=== PATIENT | male | born 1945 | race Caucasian/White ===

== ENCOUNTER 2017-10-03 10:25 | Inpatient (IN) | payer MEDICARE ==
--- NOTE | 2017-09-20 09:51 | HP ---
HISTORY AND PHYSICAL: DATE OF OFFICE VISIT: 09/20/17 DATE OF SURGERY: 10/03/17. SURGEON: Tresa Griffith MD * (DICTATED BY ADAN WASHBURN) PROCEDURE: Right total knee arthroplasty. CHIEF COMPLAINT: Right knee pain. HISTORY OF PRESENT ILLNESS: Mr. Solis is a 71-year-old gentleman complaints of right knee pain secondary to endstage osteoarthritis. He has failed conservative management and has elected to proceed with a right total knee arthroplasty, which is scheduled for 10/03/[address] Griffith. PAST MEDICAL HISTORY: Coronary artery disease, hypertension, high cholesterol , Hernandez's palsy, and first-degree AV block. PAST SURGICAL HISTORY: Cholecystectomy, lumbar decompression, appendectomy, ORIF of the right ankle, cyst excision, umbilical hernia repair, cataract removal, and CABG. CURRENT MEDICATIONS: 1. Lisinopril 5 mg daily. 2. Aspirin 81 mg daily. 3. Atorvastatin calcium 20 mg q.h.s. 4. Metoprolol 25 mg every day. ALLERGIES: None. FAMILY HISTORY: Coronary artery disease and cancer. SOCIAL HISTORY: This 71-year-old gentleman lives with his spouse. He does not smoke or use drugs. He uses occasional alcohol. REVIEW OF SYSTEMS: A complete 14-point review of systems was reviewed with the patient, all negative and noncontributory. He denies history of DVT, PE, hepatitis C, HIV, or MRSA. PHYSICAL EXAMINATION GENERAL: He is well-developed, well-nourished, in no acute distress. VITAL SIGNS: He stands 5 feet 8 inches, weighs 195 pounds, blood pressure is 134/70, heart rate is 60. HEENT: Normocephalic, atraumatic. NECK: Supple. No palpable lymph nodes. LUNGS: Clear to auscultation bilaterally. CARDIO: Regular rate and rhythm. Strong S1, S2. ABDOMEN: Soft, nontender, and nondistended. NEUROLOGIC: He is alert and oriented x3. Cranial nerves II through XII are intact. Musculoskeletal: Right lower extremity, skin is intact. There are no open wounds or abrasions, 10 to 120 degrees of flexion, 15 degree valgus deformity, there is MCL laxity on examination, he has 2+ dorsalis pedis pulses. Intact sensation in his lower extremity. Muscle group strengths are intact at 5/5. ASSESSMENT AND PLAN: Mr. Solis is a 71-year-old gentleman with complaints of right knee pain secondary to severe endstage osteoarthritis. He has failed conservative management and elected to proceed with the right total knee arthroplasty, which is scheduled for 10/03/[address] Griffith discussed the risks and benefits of the surgery at today's visit and all of his questions were answered. Coumadin, Percocet, Colace were sent to his pharmacy for postoperative pain control and DVT prophylaxis. He will see Dr. Griffith back in 2 weeks after the surgery. ADAN WASHBURN [id number]/[facility] #: [id number] MTDMasha
[~2017-10-03 10:25] MED LIST: Buffered Lidocaine 0.9% SYRIN* 5 ML/SYR SYRINGE INTRADERM ONE; Dexamethasone IV* 4 MG/ML 1 ML (4 MG) IV SLOW PU ONE; Famotidine IV* 10 MG/ML 2 ML (20 mg) IV ONE; Scopolamine 1.5 mg* PATCH TRANSDERM ONE
[2017-10-03] MEDS ORDERED: ceFAZolin 2 GM PREMIX (*) 2 GM/50 ML BAG IVPB ONE (10:36)
[2017-10-03] MEDS ORDERED: Buffered Lidocaine 0.9% SYRIN* 5 ML/SYR SYRINGE ONE (10:36)
[2017-10-03] MEDS ORDERED: Dexamethasone IV* 4 MG/ML 1 ML (4 MG) ONE (10:36)
[2017-10-03] MEDS ORDERED: Famotidine IV* 10 MG/ML 2 ML (20 mg) ONE (10:36)
[2017-10-03] MEDS ORDERED: Scopolamine 1.5 mg* PATCH ONE (10:36)
[2017-10-03 11:50] LABS: ALT 21 U/L (7-52); Albumin 4.1 g/dL (3.2-5.2); Alkaline Phosphatase 61 U/L (34-104); BUN/Creatinine Ratio 15.6 (8-20); Blood Urea Nitrogen 20 mg/dL (6-24); CO2 Carbon Dioxide 27 mmol/L (22-32); Calcium 9.6 mg/dL (8.6-10.3); Chloride 102 mmol/L (101-111); EGFR Non-African American 55.2 (>60); Glucose 94 mg/dL (70-100); Sodium 135 mmol/L (133-145); Total Protein 7.1 g/dL (6.4-8.9)
[2017-10-03 11:56] LABS: Anion Gap 6 mmol/L (2-11)
[2017-10-03] MEDS ORDERED: Morphine PF AMP (0.5MG/ML)* 5 MG/10 ML AMP ONE (12:57)
[2017-10-03] MEDS ORDERED: Midazolam* 1 MG/ML 2 ML VIAL (2 MG) ONE (12:57)
[2017-10-03] MEDS ORDERED: fentaNYL* 50 MCG/ML 2 ML VIAL (100 MCG VIAL) ONE (12:57)
[2017-10-03] MEDS ORDERED: Bupivacaine 0.5% SDV PF* 30 ML VIAL ONE (12:57)
[2017-10-03] MEDS ORDERED: ROPIVACAINE 5 MG/ML 30 ML BTL (0.5%) ONE (13:00)
[2017-10-03] MEDS ORDERED: Magnesium Hydroxide LIQ* 30 ML UDC PO PRN (13:20)
[2017-10-03] MEDS ORDERED: Bisacodyl SUPP* 10 MG SUPP PR PRN (13:20)
[2017-10-03] MEDS ORDERED: Temazepam CAP* 15 MG PO PRN (13:20)
[2017-10-03] MEDS ORDERED: Polyethylene Glycol 3350* 17 GM PACKET PO PRN (13:20)
[2017-10-03] MEDS ORDERED: Propofol* 10 MG/ML 20 ML BTL IV PUSH ONE (13:51)
[2017-10-03] MEDS ORDERED: Lidocaine 2% PF * 5 ML VIAL ONE (13:51)
[2017-10-03] MEDS ORDERED: EPHEDrine (Pressors)* 50 MG/ML VIAL ONE (14:29)
[2017-10-03] MEDS ORDERED: oxyCODONE TAB* 5 MG TAB PO PRN ×2 (14:37→14:40)
[2017-10-03] MEDS ORDERED: Acetaminophen IV 1GM/100ML * 1,000 MG/100 ML VIAL IVPB ONE (14:37)
[2017-10-03] MEDS ORDERED: fentaNYL* 50 MCG/ML 2 ML VIAL (100 MCG VIAL) IV PRN (14:37)
[2017-10-03] MEDS ORDERED: PROCHLORPERAZINE INJ 5 MG/ML 2 ML VIAL IV PRN ×2 (14:37→14:40)
[2017-10-03] MEDS ORDERED: Nalbuphine* 20 MG/ML 1 ML VIAL IV PRN (14:40)
[2017-10-03] MEDS ORDERED: Naloxone* 0.4 MG/ML 1 ML VIAL IV PRN (14:40)
[2017-10-03] MEDS ORDERED: Ondansetron INJ* 2 MG/ML VIAL IV PRN (14:40)
[2017-10-03] MEDS ORDERED: Acetaminophen IV 1GM/100ML * 100 ML ONE (16:05)
--- NOTE | 2017-10-03 17:47 | RAD ---
INDICATION: Right knee replacement COMPARISON: August 24, 2017 TECHNIQUE: AP and lateral views were obtained. FINDINGS: There is interval right knee arthroplasty. Both femoral and tibial components appear well seated. There is no overlying cooling jacket. IMPRESSION: RIGHT KNEE ARTHROPLASTY.
[2017-10-03] MEDS ORDERED: Lisinopril TAB* 5 MG PO ONE (18:23)
[2017-10-03] MEDS ORDERED: ceFAZolin 1 GM VIAL(*) 1 GM in NS 0.9% 50 ML* 50 ML IVPB SCH (22:30)
[2017-10-03] MEDS ORDERED: Warfarin TAB(*) 6 MG PO ONE (23:00)
[2017-10-03] MEDS: ceFAZolin 1 GM in Dextrose (*) 1 GM/50 ML BAG IVPB SCH (23:21)
[2017-10-03] MEDS: Atorvastatin* 20 MG TAB PO SCH (23:23)
[2017-10-03] MEDS: Docusate CAP* 100 MG PO SCH (23:23)
[2017-10-03] MEDS: Enoxaparin(*) 40 MG/0.4 ML SYR SUBCUT SCH (23:25)
--- NOTE | 2017-10-04 00:17 | CONS ---
CC: Dr. Griffith; Dr. Kuo * [facility] MEDICINE CONSULTATION REPORT: DATE OF CONSULT: 10/03/17 ATTENDING PHYSICIAN: Dr. Griffith. CONSULTING PHYSICIAN: Neo Streeter MD (dictation is provided by Sofía Cortez NP). REASON FOR CONSULT: Medical management of comorbidities. HISTORY OF PRESENT ILLNESS: Mr. Solis is a 71-year-old male with past medical history of right knee osteoarthritis, who presents to the hospital for a planned right total knee replacement with Dr. Griffith. Please see dictated H and P from ADAN David, for complete details. In brief, the patient had ongoing pain and failed conservative treatment and therefore, opted for a right total knee replacement. [facility] was contacted for consult of comorbidities. Mr. Solis states that he is doing well. No pain at te present time. PAST MEDICAL HISTORY: 1.Coronary Artery Disease 2.Hypertension 3. High cholesterol 4. Hernandez's palsy 5. first-degree AV block. PAST SURGICAL HISTORY: CABG 2013 (triple bypass). MEDICATIONS: 1. Aspirin 81 mg p.o. daily. 2. Lisinopril 5 mg p.o. daily. 3. Atorvastatin 20 mg p.o. h.s. 4. Metoprolol succinate 25 mg p.o. q.a.m. ALLERGIES: No known drug allergies, reports allergy to BEE STINGS. FAMILY HISTORY: Significant for coronary artery disease and cancer. SOCIAL HISTORY: Denies smoking, alcohol use or drug use. REVIEW OF SYSTEMS: General: No fever or chills. Cardiac: No chest pain. No edema. Respiratory: No cough or shortness of breath. GI: No nausea, vomiting , diarrhea or abdominal pain. : No gross hematuria. Neuro: No focal weakness. Eyes: No visual complaints. ENT: No dysphagia. Skin: No rashes. Psych: No depression or anxiety. PHYSICAL EXAM: Vital signs are as follows: Temp 98.4, blood pressure 142/95, heart rate is 75, respirations 14, O2 sat 96% on room air. General: Mr. Solis is sitting in the bed. He is in no acute distress. Neuro: He is alert and oriented x3. Eyes: Extraocular movements are intact. Heart: S1, S2. No murmurs, rubs, or gallops and is regular rhythm. Lungs are clear throughout to auscultation. No accessory muscle use. Abdomen: Soft, nontender. Bowel sounds positive x4. Extremities: Pedal pulses +2 bilaterally. No cyanosis or edema. Skin is intact. DIAGNOSTIC STUDIES/LAB DATA: Labs on 10/03/17: Sodium 135, potassium 4.2, chloride 102, BUN 20, creatinine is 1.28, glucose is 94. CBC was obtained on , WBC 6.0, hemoglobin 15.2, hematocrit 43, platelets are 228,000. IMPRESSION AND PLAN: Mr. Solis is a 71-year-old male that has a history of coronary artery bypass grafting, hypertension, high cholesterol, and first- degree atrioventricular block. He presented to the hospital today for a planned right total knee replacement. In the immediate postoperative period, he has no complaints and is doing well. Our recommendations are as follows: 1. Status post right total knee replacement, management will be followed by Ortho. 2. Hypertension. We will continue lisinopril. We will give a dose tonight. 3. Coronary artery disease. We will continue metoprolol. Will restart aspirin when cleared by Ortho. 4. High cholesterol. Continue atorvastatin. 5. DVT prophylaxis per Ortho. 6. Code status is full code. 7. Diet. We would recommend a heart-healthy diet. 8. Activity as per Ortho. TIME SPENT: Approximately 45 minutes was spent in this consultation of this patient, more than half the time was spent with the patient at the bedside reviewing plan during the hospitalization, performing physical exam, and reviewing my plan of care. SOFÍA CORTEZ NP [id number]/[facility] #: [id number]/[facility] #: [id number] MARIAA
--- NOTE | 2017-10-04 00:25 | CONS ---
* CC: Dr. Griffith; Dr. Kuo CONSULTATION REPORT: ADDENDUM: IMPRESSION AND PLAN: Mr. Solis is a 71-year-old male that has a history of coronary artery bypass grafting, hypertension, high cholesterol, and first- degree atrioventricular block. He presented to the hospital today for a planned right total knee replacement. In the immediate postoperative period, he has no complaints, he is doing well. Our recommendations are as follows: 1. Status post right total knee replacement, management will be followed by Ortho. 2. Hypertension. We will continue lisinopril. We will give a dose tonight. 3. Coronary artery disease. We will continue metoprolol and aspirin when cleared by Ortho. 4. High cholesterol. Continue atorvastatin. 5. DVT prophylaxis per Ortho. 6. Code status is full code. 7. Diet. We would recommend a heart-healthy diet. 8. Activity per Ortho. TIME SPENT: Approximately 45 minutes was spent in this consultation of this patient, more than half the time was spent with the patient at the bedside reviewing plan during the hospitalization, performing physical exam, and reviewing my plan of care. DOTTIE AMBROCIO, MARGARET [id number]/[facility] #: [id number] MARIAA
[2017-10-04] MEDS ORDERED: Acetaminophen TAB* 325 MG PO SCH (03:00)
[2017-10-04] MEDS ORDERED: Ondansetron INJ* 2 MG/ML VIAL IV PRN (05:45)
[2017-10-04] MEDS ORDERED: oxyCODONE/Acetamin 5/325 MG* TAB PO PRN (05:45)
[2017-10-04] MEDS ORDERED: Morphine INJ* 2 MG/ML 1 ML SYRINGE (TWO MG - NEW SYRINGE VERSION) IV PRN (05:45)
[2017-10-04] MEDS ORDERED: diPHENhydraMINE IV* 50 MG/ML 1 ml VIAL (BENADRYL) IV PRN (05:45)
[2017-10-04 06:21] LABS: Hematocrit 39 % (42-52); Hemoglobin 13.4 g/dl (14.0-18.0)
[2017-10-04] MEDS: ceFAZolin 1 GM in Dextrose (*) 1 GM/50 ML BAG IVPB SCH ×2 (06:26→14:44)
[2017-10-04 06:28] LABS: BUN/Creatinine Ratio 19.1 (8-20); Calcium 9.3 mg/dL (8.6-10.3); EGFR African American 63.5 (>60); EGFR Non-African American 49.4 (>60); Potassium 4.5 mmol/L (3.5-5.0)
[2017-10-04] MEDS: oxyCODONE/Acetamin 5/325 MG* TAB PO PRN ×3 (07:21→17:02)
--- NOTE | 2017-10-04 08:22 | OP ---
DATE OF OPERATION: 10/03/17 - ROOM #[id number] DATE OF : 43 SURGEON: Tresa Griffith MD CLINICAL APPEALS AUDITOR: ADAN Cummings. Ms. Leroy did help throughout the procedure with preparation of the leg, wound retraction, manipulation of the knee and wound closure. ANESTHESIOLOGIST: Dr. Gonzalez. ANESTHESIA: Spinal. PRE-OP DIAGNOSIS: Severe end-stage degenerative osteoarthritis of the right knee joint with valgus deformity. POST-OP DIAGNOSIS: Severe end-stage degenerative osteoarthritis of the right knee joint with valgus deformity. OPERATIVE PROCEDURE: Right total knee arthroplasty. TOURNIQUET TIME: 54 minutes. ESTIMATED BLOOD LOSS: 200 cc. SPECIMENS: Bone and cartilage from the right knee joint, sent to pathology. HARDWARE USED: This is cemented [employer] total knee hardware. Two packages of Simplex bone cement were used. For the femur, a size 7 right posterior stabilized femoral component. For the tibia, a size 6 right tibial base-plate. For the patella, 35 mm, 3-peg all poly patella and for the insert, 9 mm posterior stabilized articular insert size 5/6. BRIEF HISTORY/INDICATIONS: Mr. Solis is 71-year-old gentleman with years of increasingly severe right knee pain. He also started to develop valgus deformity of the knee. He failed conservative treatment with antiinflammatories , pain medications, intraarticular injections and physical therapy. Radiograph showed bone on bone arthritis and valgus deformity. He elected to undergo right total knee arthroplasty due to continued pain and decreased quality of life. Informed consent was obtained from the patient. He understood the risks of the procedure included, but were not limited to bleeding, infection, damage to nearby structures, continued pain, need for further surgery, intraoperative fracture, nerve palsy, hardware failure or loosening, knee stiffness, loss of motion, stroke, heart attack, blood clot and . He wished to proceed. INTRAOPERATIVE FINDINGS: Intraoperatively the patient was noted to have 10 degree flexion contracture, corrected during the case. He had extensive osteophyte formation in all 3 compartments. He had lateral femoral condylar hypoplasia. Complete loss of cartilage in a tricompartmental fashion. DESCRIPTION OF PROCEDURE: Mr. Solis was identified in the preanesthesia unit. His right lower extremity was marked with a correct operative site. Informed consent was signed and placed in the chart. The patient was taken to the operating room and placed under spinal anesthesia. A Sawyer catheter was placed. Tourniquet was placed on the right thigh. Right lower extremity was prepped and draped in the usual sterile fashion. Preoperative timeout was made to correctly identify the patient, side and site. Appropriate perioperative antibiotic was given within 1 hour of incision. Tourniquet was inflated and total tourniquet time for this procedure was 54 minutes. A 12-cm midline incision was made with a 10 blade and carried down to the extensor mechanism. A new 10 blade was used to make a standard medial parapatellar arthrotomy. The patella was subluxed laterally. Electrocautery was used to elevate the soft tissue off the superomedial tibia to the mid sagittal plane. Any medial osteophytes were removed along the tibial plateau. The knee was flexed up. Anterior horn of the lateral meniscus was not present. ACL was sharply released. A drill was used to enter the distal femur. Intramedullary distal femoral cutting guide was pinned on the distal femur. Oscillating saw was used to make the appropriate distal femoral cut. Lateral femoral condylar hypoplasia was noted and accounted for. Next, the external rotation guide was placed on the distal femur and the femur was sized to size 7. A size 7 multicutting jig was pinned on the distal femur. Oscillating saw was used to make the appropriate 4 chamfer cuts. The PCL was completely released. The tibia was subluxed anteriorly. Extramedullary tibial cutting guide was pinned on the proximal tibia. Oscillating saw was used to make the appropriate proximal tibial cut perpendicular to the mechanical axis of the tibia. The bone was carefully removed. The knee was brought out into full extension. A spacer block was placed and there was a good medial and lateral balancing. Flexion and extension gaps were well balanced. The knee was flexed up. Lamina doorkeeper was placed both medially and laterally. Any remaining meniscus was carefully removed with electrocautery. Posterior osteophytes were removed using a curved osteotome and curette. Tibial tray and drop ava were placed and once again confirmed a satisfactory proximal tibial cut. A size 7 right femoral trial was impacted on to the distal femur and had good fit. The box for the posterior stabilized implant was prepared using a reamer and box cut osteotome. A size 6 tibial tray trial with a 9 mm insert trial was placed and the knee was taken through a range of motion. The knee has full extension to 130 degrees of flexion with good patellofemoral tracking. The patella was everted. 9 mm of patellar bone and cartilage was carefully removed using an oscillating saw. Patella was sized to a size 35. Three peg holes were drilled through the size 35 guide. A trial 35 patella was placed and the knee was taken through range of motion. There was satisfactory patellofemoral tracking. All trials were carefully removed. The tibia was subluxed anteriorly and sized to a size 6. Proximal tibia was prepared using a keel punch. All bony cut surfaces were copiously irrigated with sterile saline and dried. Final implants were cemented into place starting with the tibia, followed by the femur and last patella. A 9 mm insert trial was placed while the knee was brought out to full extension. The tourniquet was turned down at 54 minutes. The knee was copiously irrigated with sterile saline. Electrocautery was used to obtain meticulous hemostasis. Once the cement had fully cured, the insert trial was removed. Any excess cement was carefully removed from around the implants and capsule. Final implant chosen was a 9 mm posterior stabilizer articular insert size 5/6. This was locked into position on the tibial tray. Stability of the insert was checked and rechecked and noted to be stable. The knee was once again copiously irrigated with sterile saline. The extensor mechanism was closed using interrupted #1 Vicryls. The rest of the incision was closed in a layered fashion using 0 and 2-0 Vicryls. Skin was closed using running 3-0 nylon suture. Sterile Xeroform, 4x4s, and Webril were used to cover the incision. John wrap and cold pack were placed over this. The patient's anesthesia was reversed without difficulty. He was taken to the PACU in stable condition. Intended weightbearing will be weightbearing as tolerated. Intended DVT prophylaxis will be Coumadin with a Lovenox bridge. [id number]/[facility] #: [id number] [facility]CH HOSPITALMasha
--- NOTE | 2017-10-04 08:36 | PN ---
Progress Note - Progress Note Date of Service: 10/04/17 SOAP: Subjective: []Patient seen OOB in chair. He confirms 2/10 pain localized to operative site. Denies chest pain, SOB, fever, chills, nausea and leg numbness. Objective: [] Vital Signs Temp 97.7 F 10/04/17 04:45 Pulse 81 10/04/17 04:45 Resp 18 10/04/17 07:21 BP 130/64 10/04/17 04:45 Pulse Ox 93 10/04/17 05:30 Intake & Output 10/03/17 10/04/17 10/04/17 18:59 06:59 18:59 Intake Total 8469 168 0933 Output Total 500 1200 Balance 1150 -847 1034 Weight 194 lb 9.6 oz Intake: IV Fluids 1650 53 980 ABX - CEFAZOLIN 53 LR 1600 980 NS 50ML, Cefazolin 2G 50 IVPB 54 ABX - CEFAZOLIN 54 Oral 300 Output: Sawyer 400 1200 Estimated Blood Loss 100 Laboratory Last Values Hgb 13.4 g/dl (14.0-18.0) L 10/04/17 05:45 Hct 39 % (42-52) L 10/04/17 05:45 INR (Anticoag Therapy) 1.01 (0.89-1.11) 10/04/17 05:45 Sodium 133 mmol/L (133-145) 10/04/17 05:45 Potassium 4.5 mmol/L (3.5-5.0) 10/04/17 05:45 Chloride 100 mmol/L (101-111) L 10/04/17 05:45 Carbon Dioxide 28 mmol/L (22-32) 10/04/17 05:45 Anion Gap 5 mmol/L (2-11) 10/04/17 05:45 BUN 27 mg/dL (6-24) H 10/04/17 05:45 Creatinine 1.41 mg/dL (0.67-1.17) H 10/04/17 05:45 Est GFR ( Amer) 63.5 (>60) 10/04/17 05:45 Est GFR (Non-Af Amer) 49.4 (>60) 10/04/17 05:45 BUN/Creatinine Ratio 19.1 (8-20) 10/04/17 05:45 Glucose 127 mg/dL (70-100) H 10/04/17 05:45 Calcium 9.3 mg/dL (8.6-10.3) 10/04/17 05:45 Total Bilirubin 0.70 mg/dL (0.2-1.0) 10/03/17 11:05 AST 22 U/L (13-39) 10/03/17 12:01 ALT 21 U/L (7-52) 10/03/17 11:05 Alkaline Phosphatase 61 U/L (34-104) 10/03/17 11:05 Total Protein 7.1 g/dL (6.4-8.9) 10/03/17 11:05 Albumin 4.1 g/dL (3.2-5.2) 10/03/17 11:05 Globulin 3.0 g/dL (2-4) 10/03/17 11:05 Albumin/Globulin Ratio 1.4 (1-3) 10/03/17 11:05 General: Well appearing, no acute distress RLE: Dressing CDI without surrounding erythema. BL LE: Calves supple and nontender without erythema, edema, palpable cords. Negative Blaine's sign. DP/PT 2+. DF/PF intact. Sensation intact distally. Assessment: []POD 1 s/p Right total knee arthroplasty 10/03, Dr Griffith Plan: []WBAT PT/OT Lovenox, coumadin 6 mg today Mildly elevated creatinine-- Hold lisinopril tomorrow if BP and creatinine require, 500 ml LR bolus. Reeval in AM. Confirmed plan with hospitalist. Seen by Dr Griffith this morning, condition and care plan discussed. Plan DC home 10/05
[2017-10-04] MEDS ORDERED: Lisinopril TAB* 5 MG PO SCH ×3 (09:00→14:02)
[2017-10-04] MEDS: Aspirin EC Low Dose* 81 MG TAB.EC PO SCH (09:22)
[2017-10-04] MEDS: Metoprolol Succinate XL TAB* 25 MG PO SCH (09:22)
[2017-10-04] MEDS: Docusate CAP* 100 MG PO SCH ×2 (09:23→22:07)
[2017-10-04] MEDS: oxyCODONE TAB* 5 MG TAB PO PRN ×3 (09:23→22:07)
--- NOTE | 2017-10-04 13:56 | PN ---
Subjective Date of Service: 10/04/17 Interval History: Patient seen and examined at bedside. Patient denies pain at this time. BP controlled. Denies SOB. Progressing with PT and eager to go home. Family History: Unchanged from Admission Social History: Unchanged from Admission Past Medical History: Unchanged from Admission Objective Active Medications: Aspirin (Aspirin Ec Low Dose*) 81 mg PO QAM FARHAD Atorvastatin Calcium (Lipitor*) 20 mg PO 1700 FARHAD Bisacodyl (Dulcolax Supp*) 10 mg HI DAILY PRN Diphenhydramine HCl (Benadryl Iv*) 25 mg IV Q6H PRN Docusate Sodium (Colace Cap*) 100 mg PO BID FARHAD Enoxaparin Sodium (Lovenox(*)) 40 mg SUBCUT Q24H FARHAD Lactated Ringer's (Lactated Ringers 1000 Ml Bag*) 1,000 mls @ 100 mls/hr IV PER RATE FARHAD Cefazolin Sodium/Dextrose (Kefzol 1 Gm In Dextrose Duplex (*)) 1 gm in 50 mls @ 200 mls/hr IVPB Q8H FARHAD Lactated Ringer's (Lactated Ringers 500 Ml Bag*) 500 mls @ 100 mls/hr IV ONCE ONE Lactulose (Lactulose*) 30 ml PO Q6H PRN Lisinopril (Prinivil Tab*) 5 mg PO QAM FARHAD Magnesium Hydroxide (Milk Of Magnesia Liq*) 30 ml PO Q6H PRN Metoprolol Succinate (Toprol Xl Tab*) 25 mg PO QAM FARHAD Morphine Sulfate (Morphine Inj (Syringe)*) 2 mg IV Q2H PRN Ondansetron HCl (Zofran Inj*) 4 mg IV Q6H PRN Oxycodone HCl (Roxycodone Tab*) 10 mg PO Q4H PRN Oxycodone/Acetaminophen (Percocet 5/325 Tab*) 1 tab PO Q4H PRN Oxycodone/Acetaminophen (Percocet 5/325 Tab*) 2 tab PO Q4H PRN Pharmacy Profile Note (Scopolamine Patch Remove*) 1 note PATCH OFF ONCE ONE Pharmacy Profile Note (Coumadin Daily Reminder*) 1 note FOLLOW UP 1700 FARHAD Polyethylene Glycol/Electrolytes (Miralax*) 17 gm PO DAILY PRN Temazepam (Restoril Cap*) 15 mg PO BEDTIME PRN Vital Signs Temp Pulse Resp BP Pulse Ox 97.3 F 64 18 99/47 95 10/04/17 11:43 10/04/17 11:43 10/04/17 13:26 10/04/17 11:43 10/04/17 11:43 Oxygen Devices in Use Now: None Appearance: sitting up in bed, NAD Eyes: No Scleral Icterus, PERRLA Ears/Nose/Mouth/Throat: NL Teeth, Lips, Gums Neck: NL Appearance and Movements; NL JVP Respiratory: Symmetrical Chest Expansion and Respiratory Effort, Clear to Auscultation Cardiovascular: NL Sounds; No Murmurs; No JVD, RRR Abdominal: NL Sounds; No Tenderness; No Distention Extremities: No Edema Skin: - - R knee incision C/D/I Neurological: Alert and Oriented x 3, NL Muscle Strength and Tone Nutrition: Taking PO's Result Diagrams: 10/04/17 05:45 10/04/17 05:45 Assess/Plan/Problems-Billing Pt is a 71 y/o M w/ PMH significant for HTN and CKD stage II who had an elective right knee replacement. Hospitalists were asked to assist with the management of the patient medical comorbidities. - Patient Problems (1) Status post total knee replacement, right Comment: Management per Ortho. Pain control with PO meds. PT/OT. Hb stable. (2) HTN (hypertension) Comment: BP low currently and Cr slightly up although baseline appears to be around 1.4. Will put hold parameters on Lisinopril. (3) CAD (coronary artery disease) Comment: Continue metoprolol and statin. Restart ASA when ok by Ortho. (4) HLD (hyperlipidemia) Comment: Continue statin. (5) DVT prophylaxis Comment: Lovenox and warfarin (6) Full code status Status and Disposition: Inpatient for R knee replacement. Dispo per Ortho.
[2017-10-04] MEDS: Enoxaparin(*) 40 MG/0.4 ML SYR SUBCUT SCH (14:18)
[2017-10-04] MEDS: Atorvastatin* 20 MG TAB PO SCH (16:58)
[2017-10-05] MEDS: oxyCODONE TAB* 5 MG TAB PO PRN ×2 (01:41→08:28)
[2017-10-05 05:45] LABS: Hematocrit 37 % (42-52); Hemoglobin 12.6 g/dl (14.0-18.0); Mean Platelet Volume 8 um3 (7.4-10.4)
[2017-10-05] MEDS: oxyCODONE/Acetamin 5/325 MG* TAB PO PRN ×2 (05:49→12:40)
[2017-10-05 05:56] LABS: Albumin 3.5 g/dL (3.2-5.2); BUN/Creatinine Ratio 23.2 (8-20); Calcium 8.7 mg/dL (8.6-10.3); EGFR African American 65.1 (>60); EGFR Non-African American 50.6 (>60); Globulin 2.4 g/dL (2-4); Potassium 4.1 mmol/L (3.5-5.0); Total Bilirubin 0.4 mg/dL (0.2-1.0); Total Protein 5.9 g/dL (6.4-8.9)
--- NOTE | 2017-10-05 07:51 | PN ---
Progress Note - Progress Note Date of Service: 10/05/17 SOAP: Subjective: Pt. is alert, pain is severe today. Objective: RLE - dressing changed, inc c/d/i. distally nvi. mod effusion at knee. Vital Signs: Temp Pulse Resp BP Pulse Ox 98.8 F 76 20 149/69 96 10/05/17 04:00 10/05/17 04:00 10/05/17 05:49 10/05/17 04:00 10/05/17 04:00 Laboratory Results - last 24 hr 10/05/17 10/05/17 10/05/17 05:14 05:14 05:14 Hgb 12.6 L Hct 37 L Plt Count 174 MPV 8 INR (Anticoag Therapy) 1.25 H Sodium 132 L Potassium 4.1 Chloride 98 L Carbon Dioxide 30 Anion Gap 4 BUN 32 H Creatinine 1.38 H Est GFR ( Amer) 65.1 Est GFR (Non-Af Amer) 50.6 BUN/Creatinine Ratio 23.2 H Glucose 118 H Calcium 8.7 Total Bilirubin 0.40 AST 86 H ALT 26 Alkaline Phosphatase 46 Total Protein 5.9 L Albumin 3.5 Globulin 2.4 Albumin/Globulin Ratio 1.5 Assessment: 71 yo M pod 2 s/p RTKA Plan: wbat pt/ot lactulose today lovenox today and 8 mg coumadin plan d/c to home 10/06
[2017-10-05] MEDS: Metoprolol Succinate XL TAB* 25 MG PO SCH (08:28)
[2017-10-05] MEDS: Aspirin EC Low Dose* 81 MG TAB.EC PO SCH (08:29)
[2017-10-05] MEDS: Docusate CAP* 100 MG PO SCH (08:29)
[2017-10-05 12:09] VITALS: BP 139/68
[2017-10-05] MEDS: Enoxaparin(*) 40 MG/0.4 ML SYR SUBCUT SCH (12:27)
[2017-10-05] MEDS ORDERED: Warfarin TAB(*) 4 MG PO ONE (17:00)
--- NOTE | 2017-10-06 04:47 | DS ---
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 OPERATIVE PROCEDURE: Right total knee arthroplasty. HISTORY: Mr. Solis is a 71-year-old gentleman with years of increasing severe right knee pain. He also started to develop valgus deformity of the knee. He failed conservative treatment with anti-inflammatories, pain medications, intraarticular injections and physical therapy. Radiographs showed bone on bone arthritis and valgus deformity, therefore, he elected to undergo right total knee arthroplasty due to continued pain and decreased quality of life. HOSPITAL COURSE: On 10/03/17, the patient was admitted to [facility] and underwent a right total knee arthroplasty without complications. He recovered briefly in the postanesthesia care unit and then was transferred to the surgical short stay unit and on stable condition. On postop day 1, hemoglobin was 13.4, hematocrit 39, INR was 1.01. He was seen by the hospitalist. Parameters were put on lisinopril to hold should his creatinine or blood pressure be inappropriately low BP or high creatinine. On exam, the patient is well appearing in no acute distress. Dressing was clean, dry and intact with no surrounding erythema. Bilateral lower extremities, calves were supple and nontender without erythema, edema or palpable cords. Negative Homans sign. Dorsalis pedis, posterior tibial pulse was 2+. Dorsiflexion, plantar flexion intact. Sensation intact distally. On postop day 2, hemoglobin 12.6, hematocrit 37, INR 1.25. Sodium was 132, chloride 98, creatinine 1.38, AST 86. His dressing was changed today. Incision was clean, dry and intact. Neurovascularly intact distally. Moderate effusion at the knee. Vital signs on date of discharge, 97.7, pulse rate 64, respiratory rate 17, oxygen saturation 94, blood pressure 139/68. Vital signs remained stable throughout his stay. He remained afebrile. DISCHARGE CONDITION: Good. DISCHARGE MEDICATIONS: 1. Lisinopril 5 mg q.a.m. 2. Aspirin 81 mg q.a.m. 3. Atorvastatin 20 mg p.o. daily. 4. Metoprolol 25 mg q.a.m. 5. Docusate 100 mg p.o. b.i.d. 6. Percocet 5/325 two tabs p.o. q.4 hours p.r.n., max daily dose of Percocet is 10 tablets. 7. Warfarin 2 mg tabs take between 1 and 3 tablets depending on instructions from INR draws. DISCHARGE INSTRUCTIONS: Weightbearing as tolerated. Okay to shower. On postop day 3, no bathing, swimming or submerging the wound. Go to the ER with any shortness of breath or chest pain. Call orthopedic office for drainage, redness, increased pain or fever. DIET: Regular diet. Continue physical therapy, occupational therapy, exercises as shown. Visiting home nurse will do wound checks and draw blood work for INR on Mondays and . His Coumadin dosing until next INR draw, which will take place on 02/20 is today at 10/05/17, 8 mg; 10/06/17, 2 mg; 10/07/17, 4 mg; 10/08/17, 2 mg. CMP will be checked with the next lab drawn on 10/09/17 to ensure normalizing of the electrolytes and LFTs. Pain control with Percocet 5/325 mg one to two tabs p.o. q.4 to 6 hours, max of 10 per day. Followup with Dr. Griffith in 10 to 14 days. ADAN GARCIA [id number]/[facility] #: [id number] MARIAA
[2017-10-06] MEDS ORDERED: Scopolamine PATCH Remove* 1 NOTE MISC PATCH OFF ONE (06:00)
== END 2017-10-05 13:45 | disposition home health service (06) | DRG 470 ==
LOC: AA 10:25 → SSU 20:31
PROVIDERS: ADMIT Orthopaedic Surgery Adult Reconstructive Orthopaedic Surgery; ATTEND Orthopaedic Surgery Adult Reconstructive Orthopaedic Surgery
PROC: 0SRC0J9 Replacement of Right Knee Joint with Synthetic Substitute, Cemented, Open Approach (ICD-10-PCS; principal; 2017-10-04)
DX: M17.11 Unilateral primary osteoarthritis, right knee (principal); E78.5 Hyperlipidemia, unspecified; I12.9 Hypertensive chronic kidney disease with stage 1 through stage 4 chronic kidney disease, or unspecified chronic kidney disease; I25.10 Atherosclerotic heart disease of native coronary artery without angina pectoris; M21.061 Valgus deformity, not elsewhere classified, right knee; I44.0 Atrioventricular block, first degree; N18.2 Chronic kidney disease, stage 2 (mild); R79.89 Other specified abnormal findings of blood chemistry; M25.761 Osteophyte, right knee; Z95.1 Presence of aortocoronary bypass graft; Z98.49 Cataract extraction status, unspecified eye; Z82.49 Family history of ischemic heart disease and other diseases of the circulatory system; Z91.030 Bee allergy status; Z79.82 Long term (current) use of aspirin; Z80.9 Family history of malignant neoplasm, unspecified
CPT/HCPCS: 36415; 80048; 80053; 85014; 85018; 85049; 85610; A9270-GY; C1776; J0690; J1100; J1650; J2250; J2704; J2795; J3010

== ENCOUNTER → 2018-04-17 10:08 | Day surgery (SDC) | payer MEDICARE ==
[~2018-04-17 10:08] MED LIST changes: +Acetaminophen TAB* 325 MG PO PRN; +Bupivacaine 0.25% SDV* 30 ML ONE; -Dexamethasone IV* 4 MG/ML 1 ML (4 MG) IV SLOW PU ONE; +Dexamethasone IV* 4 MG/ML 1 ML (4 MG) ONE; +DiMENhydriNATE IV* 50 MG/ML VIAL ONE; +EPHEDrine (Pressors)* 50 MG/ML VIAL ONE; +Famotidine IV* 10 MG/ML 2 ML (20 mg) ONE; +HYDROmorphone INJ* 1 MG/ML CARPUJECT SYRINGE IV PRN; +Ketorolac INJ* 30 MG/ML 1 ML VIAL ONE; +Lidocaine 2% PF * 5 ML VIAL ONE; +Midazolam* 1 MG/ML 5 ML VIAL (5 MG) ONE; +Naloxone* 0.4 MG/ML 1 ML VIAL IV PRN; +Ondansetron INJ* 2 MG/ML VIAL IV PRN; +Propofol* 10 MG/ML 20 ML BTL IV PUSH ONE; +Rocuronium* 10 MG/ML VIAL ONE; -Scopolamine 1.5 mg* PATCH TRANSDERM ONE; +ceFAZolin 2 GM PREMIX (*) 2 GM/50 ML BAG IVPB ONE; +fentaNYL* 50 MCG/ML 2 ML VIAL (100 MCG VIAL) ONE; +oxyCODONE TAB* 5 MG TAB PO PRN; +oxyCODONE/Acetamin 5/325 MG* TAB PO PRN
--- NOTE | 2018-04-17 13:27 | BRIEFOPN ---
Brief Operative Note - Surgery Procedures: Procedures Preop Dx: Right Inguinal Hernia Postop Dx: Same Procedure: Laparoscopic Right Inguinal Hernia Repair w/ Mesh Surgeon: Mar Assist: MEGAN aHwley Anesthesia: GET, Klufas IV Fluids: 1500mL RL EBL: <50mL Drains: None Specimen: None Complications: None Findings: Dictated
[2018-04-17 14:19] VITALS: BP 126/88
--- NOTE | 2018-04-18 11:31 | OP ---
CC: Blanco Kuo M.D. * DATE OF OPERATION: 04/17/18 - [facility] DATE OF : 43 SURGEON: Blanco Manuel MD IMPOSER: MEGAN Harman ANESTHESIOLOGIST: Shahana Thomas MD ANESTHESIA: General endotracheal. PRE-OP DIAGNOSIS: Right inguinal hernia. POST-OP DIAGNOSIS: Right inguinal hernia. OPERATIVE PROCEDURE: Laparoscopic preperitoneal repair of right inguinal hernia with mesh. ESTIMATED BLOOD LOSS: Minimal. IV FLUIDS: Crystalloids. SPECIMEN: None. DRAINS: None. COMPLICATIONS: None. COUNTS: The instrument, needle and sponge counts were correct. DESCRIPTION OF PROCEDURE: The patient was brought to the operating room and placed on table supine. Sequential compression devices were placed on both lower extremities, then general anesthesia was administered. A Sawyer catheter was placed. The abdomen was prepped and draped in the usual sterile fashion and time- out was performed. He did receive appropriate intravenous antibiotics prior to the incision. Local anesthetic was infiltrated into the skin and soft tissue. A curvilinear infraumbilical incision was created. Subcutaneous tissues were divided and the anterior rectus fascia to the right of midline was identified and incised transversally. The underlying rectus abdominal muscle was dissected laterally and then a preperitoneal balloon dissector was positioned down to the pubic symphysis. This was insufflated under direct visualization to allow insufflation only of the right side. The balloon dissector was removed and two 5 mm trocars were placed in the lower midline. The dissection proceeded from the midline laterally identifying the pubic symphysis, Chapincito's ligament and the inferior epigastric vessels. There was a large indirect inguinal hernia with a sac that was dissected free from the cord structures. During the dissection, the sac was entered. The sac was twisted upon itself, divided distally, clipped and ligated proximally with 2-0 Vicryl Endoloop. The dissection proceeded laterally to anterior superior iliac spine. The repair was then performed with the Medtronic ProGrip mesh cut to taper it laterally and then this was positioned into preperitoneal space and it was unfurled to cover direct, indirect and femoral spaces. After assuring good position of the mesh, the carbon dioxide was released from the preperitoneal space. Due to carbon dioxide within the abdominal cavity, the 12 mm port was repositioned into the peritoneal cavity and the peritoneoscopy was performed. Inspection in the pelvis revealed that the mesh was in good position. There was no rent in the peritoneum. The carbon dioxide was released and then the infra-umbilical wound was closed in 2 layers with 0 Vicryl suture to approximate the rectus sheath posteriorly and anteriorly. The skin incisions were closed with 4-0 Monocryl in subcuticular fashion and Steri-Strips were applied. The patient tolerated this procedure well. He was extubated and transferred to recovery room in stable condition. [id number]/[facility] #: [id number] MARIAA
== END | disposition home or self-care (01) ==
LOC: OR 10:08
PROVIDERS: ATTEND Surgery
DX: K40.90 Unilateral inguinal hernia, without obstruction or gangrene, not specified as recurrent (principal); I25.10 Atherosclerotic heart disease of native coronary artery without angina pectoris; Z95.1 Presence of aortocoronary bypass graft; Z87.891 Personal history of nicotine dependence; N18.9 Chronic kidney disease, unspecified; K21.9 Gastro-esophageal reflux disease without esophagitis; I44.0 Atrioventricular block, first degree; I12.9 Hypertensive chronic kidney disease with stage 1 through stage 4 chronic kidney disease, or unspecified chronic kidney disease
CPT/HCPCS: J0690; J1100; J1240; J1885; J2250; J2704; J3010